=== PATIENT | male | born 1965 ===

== ENCOUNTER 2025-03-17 06:13 | Day surgery (SDC) | payer OTHER ==
[~2025-03-17] VITALS: Ht 162.6 cm; Wt 102.6 kg
[2025-03-17] MEDS ORDERED: CeFAZolin Sodium 2,000 MG VIAL ONE (06:19)
[2025-03-17] MEDS ORDERED: Tranexamic Acid 100 ML IV ONE (06:21)
[2025-03-17] MEDS ORDERED: OMEP20ER PO (06:41)
[2025-03-17] MEDS ORDERED: FentaNYL Citrate 50 MCG/ML 2 ML Injection ONE ×2 (06:41→07:52)
[2025-03-17] MEDS ORDERED: Vitamin B Comple1 EA PO (06:42)
[2025-03-17] MEDS ORDERED: PROP10 PO (06:42)
[2025-03-17] MEDS ORDERED: THERA-D2000 UNIT PO (06:45)
[2025-03-17] MEDS ORDERED: ATOR10 PO (06:45)
[2025-03-17] MEDS ORDERED: GABA100 PO (06:46)
[2025-03-17] MEDS ORDERED: Ondansetron HCl 2 MG / ML 2ML Vial ONE ×2 (06:47→10:54)
[2025-03-17] MEDS ORDERED: Metoclopramide HCl 5MG / ML 2ML Vial ONE (06:47)
[2025-03-17] MEDS ORDERED: Lidocaine 1%-Epineph 1:100000 20 ML MDV ONE (06:53)
--- NOTE | 2025-03-17 07:02 | NUR ---
03/17/25 0702 YENNY CANDELARIO AT BEDSIDE
[2025-03-17] MEDS ORDERED: Sugammadex Sodium 200 MG/2ML SDV (100 MG/ML) ONE (08:59)
[2025-03-17] MEDS ORDERED: Rocuronium Bromide 10 MG/ML 5ML Injection IV ONE (11:23)
--- NOTE | 2025-03-17 11:34 | NUR ---
03/17/25 1134 [employer] Cam PT VOMITED ONCE IN SDU. HE WAS MEDICATED WITH ZOFRAN (SEE EMAR) AND REPORTED HIS NAUSEA SUBSIDED FOLLOWING MEDICATION. HE DENIED PAIN AND NAUSEA PRIOR TO D/C, AND HE EXPRESSED READINESS TO RETURN HOME.
== END 2025-03-17 11:20 | disposition home or self-care (01) ==
LOC: ORSCSDS 06:13
DX: M75.21 Bicipital tendinitis, right shoulder (principal); M75.41 Impingement syndrome of right shoulder; I10 Essential (primary) hypertension; G47.33 Obstructive sleep apnea (adult) (pediatric); K21.9 Gastro-esophageal reflux disease without esophagitis; E66.9 Obesity, unspecified; Z68.38 Body mass index [BMI] 38.0-38.9, adult; Z79.899 Other long term (current) drug therapy
CPT/HCPCS: C1713; J0166; J0690; J2405; J2704; J2765; J3010; J7120